=== PATIENT | male | born 1955 | race Two or more races ===

== ENCOUNTER 2022-01-26 22:03 | Inpatient (IN) | payer OTHER ==
[2022-01-26 22:26] VITALS: BMI 21.4
[2022-01-27] MEDS ORDERED: LORazepam 2 MG/ML SDV VIAL IVPUSH ONE (00:05)
[2022-01-27] MEDS ORDERED: chlordiazePOXIDE HCL 25 MG CAPSULE PO ONE (00:05)
[2022-01-27 00:22] LABS: BASO % 0.4 % (0-2.0); EOS % 0.2 % (0-4.5); HEMOGLOBIN 14.7 GM/dL (11.7-16.9); LYMPH % 18.6 % (8-40); MCHC 35.1 g/dl (32.0-35.9); MEAN CELL VOLUME 108.5 fl (80-96); MEAN PLT VOLUME 8.6 fl (7.5-11.1); MONO % 12.8 % (3.8-10.2); PLATELET COUNT 145 10^3/uL (134-434); RBC 3.87 M/mm3 (4.00-5.60); RDW 15.1 % (11.9-15.9); WHITE BLOOD COUNT 7.5 K/mm3 (4.0-10.0)
[2022-01-27 00:34] LABS: INR 1.13 (0.83-1.09)
[2022-01-27 00:36] LABS: ACTIVATED PTT 30.9 SECONDS (25.2-36.5)
[2022-01-27 00:39] LABS: CALCIUM 8.2 mg/dL (8.5-10.1)
[2022-01-27 00:40] LABS: ALBUMIN 3.4 g/dl (3.4-5.0); BLOOD UREA NITROGEN 14.6 mg/dL (7-18)
[2022-01-27 00:43] LABS: CREATININE 0.7 mg/dL (0.55-1.3)
[2022-01-27 00:45] LABS: BILIRUBIN,TOTAL 1.4 mg/dL (0.2-1); TOT PROT 7.2 g/dl (6.4-8.2)
[2022-01-27 03:08] LABS: MACROCYTOSIS 2+
[2022-01-27] MEDS ORDERED: POTASSIUM CHLORIDE TABS 20 MEQ TABLET.ER (FP) PO ONE ×2 (03:21→14:00)
[2022-01-27] MEDS ORDERED: LORazepam 1 MG TABLET PO PRN (05:14)
[2022-01-27] MEDS ORDERED: THIAMINE HCL 200 MG/2 ML VIAL IVPB ONE (05:14)
[2022-01-27] MEDS ORDERED: THIAMINE HCL 200 MG/2 ML VIAL ONE (07:24)
[2022-01-27] MEDS ORDERED: FOLIC ACID INJECTION - 1 MG, THIAMINE HCL 100 MG, MULTIVIT INJECTION ADULT 10 ML in SOD... IVPB ONE (07:30)
[2022-01-27 07:55] LABS: HEMATOCRIT 41.1 % (35.4-49); HEMOGLOBIN 14.6 GM/dL (11.7-16.9); MCH 38.7 pg (25.7-33.7); MCHC 35.6 g/dl (32.0-35.9); MEAN CELL VOLUME 108.7 fl (80-96); MEAN PLT VOLUME 8.5 fl (7.5-11.1); PLATELET COUNT 127 10^3/uL (134-434); RBC 3.78 M/mm3 (4.00-5.60); RDW 15.1 % (11.9-15.9)
[2022-01-27 08:06] LABS: CHLORIDE 98 mmol/L (98-107); SODIUM 137 mmol/L (136-145)
[2022-01-27 08:18] LABS: CALCIUM 8.4 mg/dL (8.5-10.1)
[2022-01-27 08:19] LABS: ALBUMIN 3.3 g/dl (3.4-5.0); BLOOD UREA NITROGEN 14.8 mg/dL (7-18); CO2 30 mmol/L (21-32); GLUCOSE,RANDOM 86 mg/dL (74-106); MAGNESIUM 1.2 mg/dL (1.8-2.4); PHOSPHOROUS 3.9 mg/dL (2.5-4.9)
[2022-01-27 08:20] LABS: BILIRUBIN,TOTAL 1.6 mg/dL (0.2-1); SGPT/ALT 24 U/L (13-61)
[2022-01-27 08:21] LABS: TOT PROT 6.9 g/dl (6.4-8.2)
[2022-01-27 08:22] LABS: ALK PHOS 80 U/L (45-117); CREATININE 0.7 mg/dL (0.55-1.3); SGOT/AST 25 U/L (15-37)
[2022-01-27] MEDS ORDERED: MAGNESIUM SULF 50% (8.12 MEQ/2 ML-1 GM VIAL) IVPB ONE ×2 (08:31→12:56)
[2022-01-27 08:49] LABS: ANION GAP 10 MMOL/L (8-16)
[2022-01-27] MEDS ORDERED: ENOXAPARIN NA (PORCINE) 40 MG/0.4 ML DISP.SYRIN SQ ONE (09:53)
[2022-01-27] MEDS ORDERED: POTASSIUM CHLORIDE ORAL LIQUID 20 MEQ/15 ML ONE ×2 (09:53→14:09)
[2022-01-27] MEDS ORDERED: MAGNESIUM SULFATE IN WATER 2 GM/50 ML IVPB IVPB ONE ×2 (09:54→14:10)
[2022-01-27] MEDS ORDERED: POTASSIUM CHLORIDE ORAL LIQUID 20 MEQ/15 ML PO SCH (10:00)
[2022-01-27] MEDS ORDERED: LORazepam 1 MG TABLET ONE ×3 (10:53→23:29)
[2022-01-27] MEDS: ENOXAPARIN NA (PORCINE) 40 MG/0.4 ML DISP.SYRIN SQ SCH (11:05)
[2022-01-27] MEDS: LORazepam 1 MG TABLET PO SCH ×3 (11:05→23:35)
[2022-01-27] MEDS ORDERED: CYANOCOBALAMIN (VITAMIN B-12) 1000 MCG/1 ML VIAL IM ONE (13:01)
[2022-01-27] MEDS ORDERED: POTASSIUM CHLORIDE TABS 20 MEQ TABLET.ER (FP) PO SCH (13:45)
[2022-01-27] MEDS: POTASSIUM CHLORIDE ORAL LIQUID 20 MEQ/15 ML PO SCH ×3 (14:46→18:00)
[2022-01-27 16:09] LABS: EPI CELLS 1 /uL (0-25.1); HYALINE CASTS 1 /uL (0-3.1); PH,URINE 5.5 (5.0-8.0); URINE APPEARANCE CLOUDY; URINE BACTERIA >9,000 /uL (0-1359); URINE BILIRUBIN NEGATIVE (NEGATIVE); URINE COLOR YELLOW; URINE GLUCOSE (UA) NEGATIVE (NEGATIVE); URINE KETONE TRACE (NEGATIVE); URINE LEUK ESTERASE 3+ (NEGATIVE); URINE NITRITE POSITIVE (NEGATIVE); URINE PROTEIN NEGATIVE (NEGATIVE); URINE RBC 6 /uL (0-23.9); URINE UROBILINOGEN 0.2 mg/dL (0.2-1.0); URINE WBC 654 /uL (0-25.8)
[2022-01-27 16:18] LABS: OPIATES, URI NEGATIVE (NEGATIVE); URINE BARBITURATES NEGATIVE (NEGATIVE)
[2022-01-27 16:19] LABS: METHADONE, UR NEGATIVE (NEGATIVE); PHENCYCLIDINE,URINE NEGATIVE (NEGATIVE)
[2022-01-27 16:25] LABS: COCAINE, UR NEGATIVE (NEGATIVE); URINE AMPHETAMINES NEGATIVE (NEGATIVE); URINE BENZODIAZEPINES POSITIVE (NEGATIVE)
[2022-01-27 17:52] LABS: IRON SERUM 235 ug/dL (50-175)
[2022-01-27 17:53] LABS: TOTAL IRON BINDING CAPACITY 276 ug/dL (250-450)
[2022-01-27 19:06] LABS: HEMATOCRIT 42.3 % (35.4-49); HEMOGLOBIN 14.9 GM/dL (11.7-16.9); MCH 38.1 pg (25.7-33.7); MCHC 35.1 g/dl (32.0-35.9); MEAN CELL VOLUME 108.5 fl (80-96); MEAN PLT VOLUME 8.1 fl (7.5-11.1); PLATELET COUNT 145 10^3/uL (134-434); RBC 3.89 M/mm3 (4.00-5.60); WHITE BLOOD COUNT 7.3 K/mm3 (4.0-10.0)
[2022-01-27 19:18] LABS: MAGNESIUM 2.3 mg/dL (1.8-2.4)
[2022-01-27 19:21] LABS: BILIRUBIN,DIRECT 0.5 mg/dL (0.0-0.2)
[2022-01-27 19:39] LABS: CALCIUM 8.1 mg/dL (8.5-10.1)
[2022-01-27 19:40] LABS: BLOOD UREA NITROGEN 13.8 mg/dL (7-18)
[2022-01-27 19:43] LABS: CREATININE 0.8 mg/dL (0.55-1.3)
[2022-01-27] MEDS ORDERED: CEFTRIAXONE 1 GM/50 ML BAG ONE (21:00)
[2022-01-27] MEDS: CEFTRIAXONE 1 GM in DEXTROSE 5%-WATER - 50 ML IVPB SCH (21:06)
[2022-01-28] MEDS ORDERED: LORazepam 1 MG TABLET ONE ×4 (05:00→23:23)
[2022-01-28] MEDS: LORazepam 1 MG TABLET PO SCH ×4 (05:04→23:27)
[2022-01-28 10:14] LABS: BASO % 0.5 % (0-2.0); EOS % 0.7 % (0-4.5); HEMATOCRIT 39.8 % (35.4-49); LYMPH % 24.8 % (8-40); MCH 38.6 pg (25.7-33.7); MCHC 35.1 g/dl (32.0-35.9); MEAN CELL VOLUME 109.9 fl (80-96); MEAN PLT VOLUME 8.4 fl (7.5-11.1); MONO % 11.5 % (3.8-10.2); NEUT % 62.5 % (42.8-82.8); PLATELET COUNT 117 10^3/uL (134-434); RBC 3.62 M/mm3 (4.00-5.60); RDW 14.9 % (11.9-15.9); WHITE BLOOD COUNT 5.1 K/mm3 (4.0-10.0)
[2022-01-28] MEDS ORDERED: FOLIC ACID 1 MG TABLET (FP) ONE (10:14)
[2022-01-28] MEDS ORDERED: ENOXAPARIN NA (PORCINE) 40 MG/0.4 ML DISP.SYRIN SQ ONE (10:14)
[2022-01-28] MEDS ORDERED: THIAMINE HCL 100 MG TABLET (FP) ONE (10:14)
[2022-01-28] MEDS ORDERED: CEFTRIAXONE 1 GM/50 ML BAG ONE (10:15)
[2022-01-28] MEDS: FOLIC ACID 1 MG TABLET (FP) PO SCH (10:20)
[2022-01-28] MEDS: CEFTRIAXONE 1 GM in DEXTROSE 5%-WATER - 50 ML IVPB SCH (10:20)
[2022-01-28] MEDS: ENOXAPARIN NA (PORCINE) 40 MG/0.4 ML DISP.SYRIN SQ SCH (10:20)
[2022-01-28] MEDS: THIAMINE HCL 100 MG TABLET (FP) PO SCH (10:20)
[2022-01-28 10:21] LABS: INR 1.01 (0.83-1.09); PROTHROMBIN TIME (PATIENT) 11.6 SEC (9.7-13.0)
[2022-01-28 10:23] LABS: ACTIVATED PTT 29.1 SECONDS (25.2-36.5)
[2022-01-28 10:40] LABS: CALCIUM 8.2 mg/dL (8.5-10.1)
[2022-01-28 10:41] LABS: ALBUMIN 2.9 g/dl (3.4-5.0); BLOOD UREA NITROGEN 13.2 mg/dL (7-18); MAGNESIUM 1.9 mg/dL (1.8-2.4)
[2022-01-28 10:44] LABS: CREATININE 0.6 mg/dL (0.55-1.3); PHOSPHOROUS 2.8 mg/dL (2.5-4.9)
[2022-01-28 10:45] LABS: TOT PROT 6.4 g/dl (6.4-8.2)
[2022-01-28 23:27] VITALS: TEMP 98.2
[2022-01-29] MEDS ORDERED: POTASSIUM CHLORIDE TABS 20 MEQ TABLET.ER (FP) PO ONE ×2 (03:51→05:17)
[2022-01-29] MEDS ORDERED: LORazepam 1 MG TABLET ONE ×2 (05:18→11:29)
[2022-01-29] MEDS: LORazepam 1 MG TABLET PO SCH ×2 (05:22→11:31)
[2022-01-29 08:37] LABS: HEMATOCRIT 39.5 % (35.4-49); HEMOGLOBIN 13.8 GM/dL (11.7-16.9); MCH 38.2 pg (25.7-33.7); MEAN CELL VOLUME 109.3 fl (80-96); MEAN PLT VOLUME 8.3 fl (7.5-11.1); PLATELET COUNT 135 10^3/uL (134-434); RBC 3.62 M/mm3 (4.00-5.60); RDW 14.8 % (11.9-15.9); WHITE BLOOD COUNT 4.9 K/mm3 (4.0-10.0)
[2022-01-29 08:56] LABS: CALCIUM 8.5 mg/dL (8.5-10.1)
[2022-01-29 08:57] LABS: ALBUMIN 2.9 g/dl (3.4-5.0); MAGNESIUM 1.6 mg/dL (1.8-2.4)
[2022-01-29 08:58] LABS: BLOOD UREA NITROGEN 13.6 mg/dL (7-18)
[2022-01-29 09:00] LABS: CREATININE 0.6 mg/dL (0.55-1.3)
[2022-01-29 09:01] LABS: TOT PROT 6.4 g/dl (6.4-8.2)
[2022-01-29 09:02] LABS: BILIRUBIN,TOTAL 0.6 mg/dL (0.2-1)
[2022-01-29] MEDS ORDERED: FOLIC ACID 1 MG TABLET (FP) ONE (09:39)
[2022-01-29] MEDS ORDERED: ENOXAPARIN NA (PORCINE) 40 MG/0.4 ML DISP.SYRIN SQ ONE (09:39)
[2022-01-29] MEDS ORDERED: THIAMINE HCL 100 MG TABLET (FP) ONE (09:39)
[2022-01-29] MEDS ORDERED: CEFTRIAXONE 1 GM/50 ML BAG ONE (09:39)
[2022-01-29] MEDS: FOLIC ACID 1 MG TABLET (FP) PO SCH (09:42)
[2022-01-29] MEDS: ENOXAPARIN NA (PORCINE) 40 MG/0.4 ML DISP.SYRIN SQ SCH (09:42)
[2022-01-29] MEDS: CEFTRIAXONE 1 GM in DEXTROSE 5%-WATER - 50 ML IVPB SCH (09:43)
[2022-01-29] MEDS: THIAMINE HCL 100 MG TABLET (FP) PO SCH (09:43)
[2022-01-29] MEDS ORDERED: MAGNESIUM OXIDE 400 MG TABLET (FP) PO ONE (10:00)
[2022-01-29] MEDS ORDERED: MAGNESIUM OXIDE 400 MG TABLET (FP) ONE (10:04)
[2022-01-29 17:34] VITALS: BP 116/88; PULSE 115
[2022-01-30] MEDS ORDERED: LORazepam 0.5 MG TABLET PO PRN
[2022-01-30] MEDS ORDERED: LORazepam 0.5 MG TABLET PO SCH (05:00)
[2022-01-31] MEDS ORDERED: LORazepam 0.5 MG TABLET PO ONE (05:00)
== END 2022-01-29 18:32 | disposition short-term general hospital (02) | DRG 641 ==
LOC: JER 22:03 → JERBED 01-27 02:18
PROVIDERS: ADMIT Internal Medicine; ATTEND Internal Medicine
PROC: HZ2ZZZZ Detoxification Services for Substance Abuse Treatment (ICD-10-PCS; principal; 2022-01-27)
DX: E87.6 Hypokalemia (principal); N39.0 Urinary tract infection, site not specified; F10.230 Alcohol dependence with withdrawal, uncomplicated; I10 Essential (primary) hypertension; S40.029A Contusion of unspecified upper arm, initial encounter; E83.42 Hypomagnesemia; X58.XXXA Exposure to other specified factors, initial encounter; Y93.9 Activity, unspecified; Y92.89 Other specified places as the place of occurrence of the external cause; Y99.9 Unspecified external cause status
CPT/HCPCS: 36415; 70450-TC; 72125-TC; 80048; 80053; 80307; 81003; 82248; 82607; 82728; 82746; 82977; 83540; 83550; 83735; 84100; 84443; 84484; 85025; 85027; 85610; 85730; 86850; 86900; 86901; 87086; 87186; 93005; 93010; 99285-25; C9803-CS; U0003; U0005

== ENCOUNTER 2022-01-29 19:08 | Inpatient (IN) | payer OTHER ==
[2022-01-29] MEDS ORDERED: ONDANSETRON *ODT* 4 MG TABLET SL PRN (21:47)
[2022-01-29] MEDS ORDERED: IBUPROFEN 600 MG TABLET (FP) PO PRN (21:47)
[2022-01-29] MEDS ORDERED: NICOTINE 10 MG CARTRIDGE (INHALER) IH PRN (21:47)
[2022-01-29] MEDS ORDERED: NICOTINE POLACRILEX 2 MG GUM BUC PRN (21:47)
[2022-01-29] MEDS ORDERED: hydrOXYzine PAMOATE 25 MG CAPSULE (FP) PO PRN (21:47)
[2022-01-29] MEDS ORDERED: BISMUTH SUBSALICYLATE 524 MG/30 ML PO PRN (21:47)
[2022-01-29] MEDS ORDERED: BENZOCAINE/MENTHOL (CHLORASEPTIC ) LOZENGE MM PRN (21:47)
[2022-01-29] MEDS ORDERED: ACETAMINOPHEN 325 MG TABLET (FP) PO PRN ×2 (21:47)
[2022-01-29] MEDS ORDERED: MAGNESIUM CITRATE 300 ML BOTTLE PO PRN (21:47)
[2022-01-29] MEDS ORDERED: LOPERAMIDE HCL 2 MG CAPSULE PO PRN (21:47)
[2022-01-29] MEDS ORDERED: IBUPROFEN 400 MG TABLET (FP) PO PRN (21:47)
[2022-01-29] MEDS ORDERED: MAG HYDROX/AL HYDROX/SIMETH 30 ML UNIT-DOSE CUP PO PRN (21:47)
[2022-01-29] MEDS ORDERED: MAGNESIUM HYDROX 2400MG/30ML ORAL SUSPENSION 30 ML CUP PO PRN (21:47)
[2022-01-29] MEDS ORDERED: DICYCLOMINE HCL 10 MG CAPSULE PO PRN (21:47)
[2022-01-29] MEDS ORDERED: LORazepam 0.5 MG TABLET PO PRN (21:57)
[2022-01-29] MEDS ORDERED: THIAMINE HCL 100 MG TABLET (FP) PO SCH (22:00)
[2022-01-29] MEDS ORDERED: MELATONIN 5 MG TABLETS PO SCH (22:00)
[2022-01-29] MEDS ORDERED: PATIENT'S OWN MEDICATION (NON-FORMULARY) (Cyanocobalamin/Folic Acid [B12-Folic Acid 2500-4 PO SCH (22:00)
[2022-01-29 22:11] VITALS: BMI 28.8
[2022-01-30] MEDS: SULFAMETHOXAZOLE/TRIMETHOPRIM 800MG/160MG D.S. TABLET PO SCH ×3 (01:15→10:38)
[2022-01-30] MEDS: MAGNESIUM OXIDE 400 MG TABLET (FP) PO SCH ×2 (01:33→10:38)
[2022-01-30] MEDS ORDERED: PRENATAL VITAMINS W/ FOLIC ACID TABLET (FP) PO SCH (10:00)
[2022-01-30 13:05] VITALS: BP 131/81; PULSE 81; TEMP 97.3
== END 2022-01-30 13:13 | disposition home or self-care (01) | DRG 897 ==
LOC: YASAS 19:08 → Y6N 23:39
PROVIDERS: ADMIT Allergy & Immunology; ATTEND Surgery
PROC: HZ2ZZZZ Detoxification Services for Substance Abuse Treatment (ICD-10-PCS; principal; 2022-01-29)
DX: F10.230 Alcohol dependence with withdrawal, uncomplicated (principal); F17.210 Nicotine dependence, cigarettes, uncomplicated; R41.82 Altered mental status, unspecified
CPT/HCPCS: 93005; 93010; C9803-CS; U0003; U0005